=== PATIENT | female | born 1950 | race African-American/Black ===

== ENCOUNTER → 2018-07-08 | Outpatient (CLI) | payer OTHER, BC ==
[~2018-07-08] VITALS: Ht 154.3 cm; Wt 84.4 kg
[~2018-07-08] MED LIST: ADULT ASPIRIN81 MG PO; BYSTOLIC10 MG PO; FLAX OIL1000 MG PO; NORVASC10 MG PO; VITAMIN B-12500 MC5 PO
== END | disposition home or self-care (01) ==
LOC: AMB 07:48
PROC: 0DBL8ZX Excision of Transverse Colon, Via Natural or Artificial Opening Endoscopic, Diagnostic (ICD-10-PCS; principal; 2018-07-08)
DX: Z12.11 Encounter for screening for malignant neoplasm of colon (principal); D12.3 Benign neoplasm of transverse colon; D12.4 Benign neoplasm of descending colon; K64.8 Other hemorrhoids; K57.30 Diverticulosis of large intestine without perforation or abscess without bleeding; R21 Rash and other nonspecific skin eruption
CPT/HCPCS: 88305; 93005